=== PATIENT | male | born 1940 | race Caucasian/White ===

== ENCOUNTER 2022-07-26 11:49 | Inpatient (IN) | payer OTHER ==
[~2022-07-26] VITALS: Ht 175.3 cm; Wt 70.8 kg
--- NOTE | 2022-07-26 12:30 | NUR ---
PT BIB AWAKE AND ALERT AOX4. NO SOB OR DISTRESS. PT C/O FEVER, night sweat AND GENBERALIZED WEAKNESS X7 DAYS. PT HAS HX OF DM2, HTN, HDL.
--- NOTE | 2022-07-26 12:35 | NUR ---
MD DR ESPOSITO AT BEDSIDE
[2022-07-26 13:06] LABS: BILIRUBIN,URINE NEGATIVE (NEGATIVE); CLARITY/URINE CLEAR (CLEAR); COLOR,URINE YELLOW (YELLOW); GLUCOSE,URINE NEGATIVE (NEGATIVE); KETONES,URINE NEGATIVE (NEGATIVE); LEUKOCYTE ESTERASE ,URINE NEGATIVE (NEGATIVE); NITRITE, URINE NEGATIVE (NEGATIVE); PH,URINE 5.5 (5.0-8.0); PROTEIN URINE 2+ (NEGATIVE); UROBILINOGEN,URINE 0.2 (0.2-1.0)
[2022-07-26 13:12] LABS: BLOOD, URINE TRACE (NEGATIVE)
[2022-07-26 13:41] LABS: BACTERIA,URINE RARE /HPF (None Seen)
[2022-07-26 13:42] LABS: HYALINE CASTS, URINE 0-10 /LPF (None Seen)
[2022-07-26 14:04] LABS: ANION GAP 9 (5-15); CALCIUM 9.1 mg/dL (8.4-11.0); CHLORIDE 97 mmol/L (98-107); CREATININE 1.25 mg/dL (0.55-1.30); GLUCOSE 229 mg/dL (70-99); UREA NITROGEN, BLOOD 29 mg/dL (8-21)
[2022-07-26 14:09] LABS: ALANINE AMINOTRANSFERASE 62 U/L (12-78); ALBUMIN 2.3 g/dL (3.4-4.8); ASPARTATE AMINOTRANSFERASE 24 U/L (10-37); BASOPHILS # (AUTO) 0.1 K/uL (0.0-0.2); BASOPHILS % (AUTO) 0.2 % (0.0-2.0); C-REACTIVE PROTEIN QUANT 24.8 mg/dL (0-0.5); HEMATOCRIT 33.7 % (36-54); HEMOGLOBIN 11.3 g/dL (14.0-18.0); LYMPHOCYTES # (AUTO) 1.3 K/uL (1.0-5.5); MEAN CORPUSCULAR HEMOGLOBIN 30 pg (27-31); MEAN CORPUSCULAR HGB CONC 34 % (32-36); MEAN CORPUSCULAR VOLUME 89 fL (79.0-98.0); MONOCYTES # (AUTO) 2.7 K/uL (0.0-1.0); MONOCYTES % (AUTO) 10.5 % (1.7-9.3); NEUTROPHILS % (AUTO) 84.3 % (40.0-70.0); PLATELET COUNT (AUTO) 319 K/uL (130-430); RED CELL DISTRIBUTION WIDTH 12.9 % (9.0-15.0); TOTAL BILIRUBIN 0.6 mg/dL (0.0-1.0); WHITE BLOOD COUNT (AUTO) 26.1 K/uL (4.8-10.8)
[2022-07-26] MEDS ORDERED: NACL 0.9% 1,000 ML IV ONE (14:30)
[2022-07-26] MEDS ORDERED: PIPERACILLIN/TAZO 4.5GM/DEX-IS 100 ML IV SCH (14:30)
[2022-07-26] MEDS ORDERED: GLUCOSE (DEXTROSE) ORAL GEL -Adults PO PRN (14:45)
[2022-07-26] MEDS ORDERED: ONDANSETRON HCL 4 MG/2 ML VIAL IVP PRN (14:45)
[2022-07-26] MEDS ORDERED: DEXTROSE 50% JECT 50 ML DISP.SYRIN IVP PRN (14:45)
[2022-07-26] MEDS ORDERED: D5W 1,000 ML IV PRN (14:45)
[2022-07-26] MEDS ORDERED: ACETAMINOPHEN 325 MG TABLET PO PRN ×2 (14:45→15:00)
[2022-07-26] MEDS ORDERED: VANCOMYCIN HCL 1000 MG/VIAL IV ONE (14:48)
[2022-07-26] MEDS ORDERED: VANCOMYCIN HCL 1,000 MG in NS 250 ML IV ONE (15:00)
[2022-07-26] MEDS ORDERED: PIPERACILLIN/TAZO 4.5GM/DEX-IS 100 ML IV ONE (15:00)
--- NOTE | 2022-07-26 15:57 | NUR ---
Admit bed requested Patient will be admitted to care of Dr. INIGUEZ. Admitted to TELE unit. Diagnosis SIRS Inpatient (Yes or No) YES Observation (Yes or No) NO Orientation concerns or request close to nursing station (Yes or No) NO Covid Status NEG On vent or bipap NO Isolation requirements NO Needs a sitter NO From Home (Yes or if No enter name of facility) YES Requires Dialysis (Yes or No) NO Med Rec Completed (Yes of No) YES
[2022-07-26] MEDS ORDERED: METF-379 PO (16:49)
[2022-07-26] MEDS ORDERED: OMEP40CA20 PO (16:49)
[2022-07-26] MEDS ORDERED: LISI20TA30 PO (16:49)
[2022-07-26] MEDS ORDERED: SIMV40TA2 PO (16:49)
[2022-07-26] MEDS ORDERED: DORZ10DR10 EACH EYE (16:49)
[2022-07-26] MEDS ORDERED: MESA500C PO (16:49)
[2022-07-26] MEDS ORDERED: TAMS-11 PO (16:49)
[2022-07-26] MEDS ORDERED: UBID1CAP54 PO (16:49)
[2022-07-26] MEDS ORDERED: MULT-1089 PO (16:49)
[2022-07-26] MEDS ORDERED: XALEYE OP (16:49)
[2022-07-26] MEDS ORDERED: cefTRIAXone 1 GM IVPB PREMIX 50 ML IV SCH (18:00)
[2022-07-26] MEDS ORDERED: PIPERACILLIN/TAZO 2.25G/DEX-IS 50 ML IV ONE (19:00)
--- NOTE | 2022-07-26 19:20 | NUR ---
REPORT GIVEN TO CHLOE FOR RESUMPTION OF CARE. PT STABLE
[2022-07-26] MEDS: NACL 0.9% 1,000 ML IV SCH (19:30)
--- NOTE | 2022-07-26 19:36 | NUR ---
Medication reconciliation completed by prior RN with information provided by pt. Any prior medication reconciliation on file was reviewed and corrected.
--- NOTE | 2022-07-26 20:15 | NUR ---
Patient will be admitted to care of MD Graff. Admitted to tele unit. Will go to room 111A. Complete and up to date summary report printed. SBAR report given at bedside with opportunity for questions to receiving RN.
[2022-07-26 20:38] VITALS: BP_SYST 111
[2022-07-26] MEDS: INSULIN LISPRO SLIDING SCALE 100 UNITS/ML, 3 ML VIAL (humaLOG) SUBCUT PRN (22:16)
--- NOTE | 2022-07-26 22:20 | NUR ---
RECEIVED PT FROM ED. NO DISTRESS NOTED, DENIES PAIN. AAOX4, O2 SAT 96% ON RA. IV SITE TO LFA SITE CDI. LUNG SOUNDS CLEAR. PALATABLE PULSES TO ALL EXTREMITIES. NO SKIN INJURY NOTED.
[2022-07-26] MEDS ORDERED: PIPERACILLIN/TAZOBACTAM 2.25 GM VIAL IV ONE (22:50)
[2022-07-26] MEDS: PIPERACILLIN/TAZO 2.25G/DEX-IS 50 ML IV SCH (23:13)
[2022-07-27 00:16] VITALS: BP_SYST 103
--- NOTE | 2022-07-27 04:24 | NUR ---
CONSULTATION PAGED REASON FOR CONSULTATION: SIRS WAS CONSULT CALLED? Y PERSON WHO WAS NOTIFIED: JOSE CONSULTING PHYSICIAN: DR. PEREZ REQUESTING PHYSICIAN: DR. INIGUEZ
[2022-07-27] MEDS: PIPERACILLIN/TAZO 2.25G/DEX-IS 50 ML IV SCH ×3 (05:22→18:27)
[2022-07-27] MEDS: INSULIN LISPRO SLIDING SCALE 100 UNITS/ML, 3 ML VIAL (humaLOG) SUBCUT PRN ×2 (06:13→21:37)
[2022-07-27 07:38] LABS: BASOPHILS % (AUTO) 0.1 % (0.0-2.0); EOSINOPHILS % (AUTO) 0.1 % (0.0-4.0); HEMATOCRIT 28.6 % (36-54); HEMOGLOBIN 9.8 g/dL (14.0-18.0); LYMPHOCYTES % (AUTO) 5.9 % (20.5-51.5); MEAN CORPUSCULAR HEMOGLOBIN 30 pg (27-31); MEAN CORPUSCULAR HGB CONC 34 % (32-36); MEAN CORPUSCULAR VOLUME 88 fL (79.0-98.0); MONOCYTES # (AUTO) 1.7 K/uL (0.0-1.0); MONOCYTES % (AUTO) 9.8 % (1.7-9.3); NEUTROPHILS # (AUTO) 14.7 K/uL (1.8-7.7); NEUTROPHILS % (AUTO) 84.1 % (40.0-70.0); PLATELET COUNT (AUTO) 281 K/uL (130-430); RED BLOOD CELL COUNT(AUTO) 3.25 MIL/uL (4.2-6.2); RED CELL DISTRIBUTION WIDTH 12.6 % (9.0-15.0); WHITE BLOOD COUNT (AUTO) 17.5 K/uL (4.8-10.8)
[2022-07-27 07:40] VITALS: BP_SYST 100
--- NOTE | 2022-07-27 07:40 | NUR ---
OPENING NOTE Patient sitting at side of bed. A/O x 4, Peruvian speaking. Patient Breathing even and unlabored on RA saturations at 94%. NO pain, no distress, no SOB. Patient on CCHO diet. Patient has IV to LFA 20g, patent on infusion pump. Bed is locked in lowest position. Call light within reach, all needs met, will continue to monitor.
[2022-07-27 08:35] LABS: ALANINE AMINOTRANSFERASE 58 U/L (12-78); ANION GAP 7 (5-15); ASPARTATE AMINOTRANSFERASE 35 U/L (10-37); CALCIUM 8.6 mg/dL (8.4-11.0); CHLORIDE 101 mmol/L (98-107); CREATININE 1.16 mg/dL (0.55-1.30); GLUCOSE 168 mg/dL (70-99); TOTAL BILIRUBIN 0.6 mg/dL (0.0-1.0); UREA NITROGEN, BLOOD 23 mg/dL (8-21)
[2022-07-27] MEDS: NACL 0.9% 1,000 ML IV SCH (08:47)
[2022-07-27 11:28] VITALS: BP_SYST 122
--- NOTE | 2022-07-27 12:10 | NUR ---
ROUNDS: Patient resting inbed. Patient Breathing even and unlabored on RA. NO pain, no distress, no SOB. Bed is locked in lowest position. Call light within reach, all needs met, will continue to monitor.
--- NOTE | 2022-07-27 12:26 | NUR ---
MD NETTLES Spoke with MD Nettles regarding patient's status per MD he stated no further changes at this moment.
--- NOTE | 2022-07-27 14:31 | NUR ---
MED REC Spoke with MD Graff regarding the Med rec and he stated he will work on it.
[2022-07-27 15:47] VITALS: BP_SYST 113
--- NOTE | 2022-07-27 16:10 | NUR ---
ROUNDS: Patient resting in bed. Patient Breathing even and unlabored on RA. NO pain, no distress, no SOB. Bed is locked in lowest position. Call light within reach, all needs met, will continue to monitor.
--- NOTE | 2022-07-27 18:34 | NUR ---
CLOSING NOTE Patient sitting at side of bed. A/O x 4, Ugandan speaking. Patient Breathing even and unlabored on RA saturations at 94%. NO pain, no distress, no SOB. Patient on CCHO diet. Patient has IV to LFA 20g, patent on infusion pump. Bed is locked in lowest position. Call light within reach, all needs met, will endorse to nightshift nurse.
--- NOTE | 2022-07-27 19:30 | NUR ---
OPENING NOTE PT LYING IN BED AND EYES OPEN. BREATHING EVEN AND NONLABORED VIA RA. NO S/S OF DISTRESS OR PAIN AT THIS MOMENT. SAFETY CHECKS IN PLACE. CONTINUE TO MONITOR.
[2022-07-27 20:00] VITALS: BP_SYST 115
--- NOTE | 2022-07-28 00:15 | NUR ---
ROUNDING NOTE PY LYING IN BED AND EYES CLOSE. VSS. NO S/S OF DISTRESS OR PAIN. SAFETY CHECKS IN PLACE. CONTINUE TO MONITOR.
[2022-07-28] MEDS: NACL 0.9% 1,000 ML IV SCH ×2 (01:35→03:23)
[2022-07-28 03:33] VITALS: BP_SYST 115
[2022-07-28] MEDS: PIPERACILLIN/TAZO 2.25G/DEX-IS 50 ML IV SCH ×2 (06:15)
--- NOTE | 2022-07-28 06:53 | NUR ---
CLOSING NOTE PT LYING BED AND EYES CLOSED. BREATHING EVEN AND NONLABORED. NO S/S OF ACUTE DISTRESS OR PAIN. CHANGED ALL LINENS IN HIS BED AND NEW GOWN ON. PT STATED HE WANTS TO START WALKING AROUND. SAFETY CHECKS ON PLACE. BED ALARM AND LOWEST POSITION. ENDORSED TO DAY SHIFT NURSE.
[2022-07-28 07:20] VITALS: BP_SYST 139
--- NOTE | 2022-07-28 07:20 | NUR ---
OPENING NOTE Patient sitting at side of bed. A/O x 4, Chinese speaking. Patient Breathing even and unlabored on RA saturations at 98%. NO pain, no distress, no SOB. Patient on CCHO diet. Patient has IV to LFA 20g, patent on infusion pump. Bed is locked in lowest position. Call light within reach, all needs met, will continue to monitor.
[2022-07-28 07:59] LABS: BASOPHILS % (AUTO) 0.1 % (0.0-2.0); EOSINOPHILS % (AUTO) 0.3 % (0.0-4.0); HEMOGLOBIN 11.3 g/dL (14.0-18.0); LYMPHOCYTES # (AUTO) 1.2 K/uL (1.0-5.5); LYMPHOCYTES % (AUTO) 11.9 % (20.5-51.5); MEAN CORPUSCULAR HEMOGLOBIN 31 pg (27-31); MEAN CORPUSCULAR HGB CONC 34 % (32-36); MEAN CORPUSCULAR VOLUME 89 fL (79.0-98.0); MONOCYTES # (AUTO) 0.7 K/uL (0.0-1.0); MONOCYTES % (AUTO) 7.2 % (1.7-9.3); NEUTROPHILS # (AUTO) 7.9 K/uL (1.8-7.7); NEUTROPHILS % (AUTO) 80.5 % (40.0-70.0); PLATELET COUNT (AUTO) 319 K/uL (130-430); RED CELL DISTRIBUTION WIDTH 12.8 % (9.0-15.0); WHITE BLOOD COUNT (AUTO) 9.8 K/uL (4.8-10.8)
[2022-07-28 08:20] LABS: ANION GAP 9 (5-15); CALCIUM 8.7 mg/dL (8.4-11.0); CHLORIDE 99 mmol/L (98-107); CREATININE 0.95 mg/dL (0.55-1.30); GLUCOSE 155 mg/dL (70-99); UREA NITROGEN, BLOOD 19 mg/dL (8-21)
--- NOTE | 2022-07-28 09:19 | NUR ---
POTASSIUM LEVEL PATIENT'S POTASSIUM LEVEL IS 3.3, SPOKE WITH MD INIGUEZ AND HE ORDERED FOR POTASSIUM 20MEQ PO. ORDERS CARRIED OUT.
--- NOTE | 2022-07-28 09:20 | NUR ---
MED [facility] Reminded MD Graff about the medication reconciliation. He stated he will work on it.
[2022-07-28] MEDS ORDERED: POTASSIUM CHLORIDE 20 MEQ/PKT PACKET PO ONE (09:30)
[2022-07-28 11:21] VITALS: BP_SYST 117
--- NOTE | 2022-07-28 12:10 | NUR ---
ROUNDS: Patient resting in bed. Patient Breathing even and unlabored on RA . NO pain, no distress, no SOB. Bed is locked in lowest position. Call light within reach, all needs met, will continue to monitor.
[2022-07-28] MEDS ORDERED: AZITHROMYCIN 500 MG in NS 250 ML IV SCH (13:00)
[2022-07-28] MEDS ORDERED: DOXY100C5 PO (14:13)
[2022-07-28 15:25] VITALS: BP_SYST 145
[2022-07-28 15:55] VITALS: BP_SYST 145
--- NOTE | 2022-07-28 16:29 | NUR ---
D/C Patient Patient given medication reconciliation form and D/C instructions. Exit Care provided. Patient verbalized understanding. MD Graff discussed with patient the results and treatment provided. Ambulatory with steady gait for discharge to home. Patient in stable condition, ID band removed. IV catheter removed, intact and dressing applied, no active bleeding. Rx of doxycycline set to [facility] pharmacy, confirmed with Sofia Pharmacist. Patient educated on pain management. All belongings sent with patient.
[2022-08-01 20:06] LABS: MYCOPLASMA PNEUMONIAE IgM <770 U/mL (0-769)
== END 2022-07-28 16:30 | disposition home or self-care (01) | DRG 194 ==
LOC: SED 11:49 → STU 14:31 → SMU 07-28 12:39
PROVIDERS: ADMIT Family Medicine; ATTEND Family Medicine
DX: J18.9 Pneumonia, unspecified organism (principal); N39.0 Urinary tract infection, site not specified; R65.10 Systemic inflammatory response syndrome (SIRS) of non-infectious origin without acute organ dysfunction; Z20.822 Contact with and (suspected) exposure to COVID-19; I10 Essential (primary) hypertension; E11.9 Type 2 diabetes mellitus without complications
CPT/HCPCS: 36415; 71045; 80048; 80053; 81000; 83605; 85025; 86140; 86738; 87040; 87086; 96365; 96367; 99285; G0378; J0456; J0696; J2543; J3370; J7050; J7060